=== PATIENT | female | born 1985 | race Caucasian/White ===

== ENCOUNTER 2019-09-25 18:50 | Emergency (ER) | payer OTHER ==
[~2019-09-25] VITALS: Ht 162.6 cm; Wt 53.1 kg
[2019-09-25 19:05] VITALS: BP 125/78
--- NOTE | 2019-09-25 19:05 | NUR ---
ED Nurse Note: Patient walked in, [facility] employee d/t lower back aching pain 5/10 radiates to hips. Patient reported it occurred during work today. Patient aao x 4 and ambulatory with steady gait. Patient stable upon assessment. Addendum: 09/25/19 at 1946 by IOR[facility] ED Nurse Note: Patient walked in, [facility] [place] d/t lower back aching pain 5/10 radiates to hips. Patient reported it occurred during work today. Patient aao x 4 and ambulatory. Patient stable upon assessment.
--- NOTE | 2019-09-25 19:07 | NUR ---
ED Nurse Note: ERMD at bedside.
--- NOTE | 2019-09-25 19:12 | NUR ---
ED Nurse Note: Per ERMD, urine sample not required.
[2019-09-25] MEDS ORDERED: Acetaminophen 500mg (ES) tab ORAL ONE (19:15)
[2019-09-25] MEDS ORDERED: Ketorolac 60mg Inj IM ONE (19:15)
[2019-09-25] MEDS ORDERED: LIDODERM700 M1 TOPIC (19:17)
[2019-09-25] MEDS ORDERED: TYLENOL325 MG ORAL (19:17)
[2019-09-25] MEDS ORDERED: ROBAXIN-750750 MG PO (19:17)
[2019-09-25] MEDS ORDERED: IBUPROFEN600 M1 ORAL (19:17)
--- NOTE | 2019-09-25 19:18 | Emergency Room Report ---
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, she felt sharp pain left lower back rating down her left leg, aggravated with movement alleviated with rest severity is moderate, intermittent , no perineal numbness no urinary retention no difficulty urinating, no focal weakness in the legs patient presents for evaluation Allergies: Coded Allergies: No Known Allergies (Unverified , 09/25/19) COVID-19 Screening Contact w/high risk pt: Yes Recent Travel to affected area: No Experienced COVID-19 symptoms?: No Patient History Past Medical History: see triage record Last Menstrual Period: September 01, 2019 Now: No : 0 Para: 0 Reviewed Nursing Documentation: PMH: Agreed; PSxH: Agreed Nursing Documentation-PMH Past Medical History: No Stated History Review of Systems All Other Systems: negative except mentioned in HPI Physical Exam Vital Signs Date Time Temp Pulse Resp B/P (MAP) Pulse Ox O2 Delivery O2 Flow Rate FiO2 09/25/19 19:01 98.1 71 18 130/84 (99) 99 09/25/19 19:05 Room Air General Appearance: well appearing, no apparent distress Head: normocephalic, atraumatic ENT: hearing grossly normal, normal voice Neck: full range of motion, supple Respiratory: no respiratory distress, speaking full sentences Musculoskeletal: other - Left lower backhoe operator to palpation no midline tenderness, 5 out of 5 strength hips flexion extension, knee flexion extension, ankle flexion extension, sensation grossly intact bilaterally, ambulation intact , 2+ patellar reflexes bilaterally Neurologic: alert, normal gait Psychiatric: mood/affect normal Skin: no rash Medical Decision Making Diagnostic Impression: Primary Impression: Low back pain Qualified Codes: M54.42 - Lumbago with sciatica, left side Additional Impression: Unspecified injury of lower back, sequela ER Course The patient presents with acute onset of back pain after assisting patient this AM. Clinically this patient can be ruled out for serious pathology given there is a completely normal neurological exam, no history of IV drug use, and no history of bowel or bladder incontinence, no perianal numbness/tingling, no constipation or urinary retention. Once the patient's pain was adequately controlled, the patient was able to ambulate and be discharged in stable condition with anticipatory guidance provided. Patient deferred test aware of risks and benefits to unborn fetus, patient reports she is not . Last Vital Signs Date Time Temp Pulse Resp B/P (MAP) Pulse Ox O2 Delivery O2 Flow Rate FiO2 09/25/19 19:05 98.1 75 16 125/78 97 Room Air Disposition: HOME, SELF-CARE Condition: Stable Scripts Methocarbamol* (ROBAXIN-750*) 750 Mg Tablet 750 MG PO TID PRN for spasm, #21 TAB 0 Refills Prov: Wyatt Velazquez MD 09/25/19 Acetaminophen (Tylenol) 325 Mg Tablet 650 MG ORAL Q6H PRN for Prn Pain/Headache/Temp > 101, #30 TAB 0 Refills Prov: Wyatt Velazquez MD 09/25/19 Ibuprofen* (MOTRIN*) 600 Mg Tablet 600 MG ORAL Q8H PRN for FOR PAIN, #30 TAB 0 Refills Prov: Wyatt Velazquez MD 09/25/19 Lidocaine Patch* (Lidoderm Patch*) 1 Each Adh..patch 1 PATCH TOPIC DAILY, #7 PATCH 0 Refills Patch(es) may remain in place for up to 12 hours in any 24-hour period. Prov: Wyatt Velazquez MD 09/25/19 Referrals: [facility] Dimitri Mcwilliams. [facility] Departure Forms: Return to Work Return to Work Date: Sep 28, 2019 Patient Instructions: Low Back Sprain With Rehab-SportsMed, Back Pain, Adult Additional Instructions: The patient was provided with discharge instructions, notified to follow-up with a primary care doctor and or specialist in the next 24-48 hours, and to return to the ED if they have worsening of their symptoms. Please note that this report is being documented using [employer] technology. This can lead to erroneous entry secondary to incorrect interpretation by the dictating instrument. Wyatt Velazquez MD Sep 25, 2019 19:18
[2019-09-25 19:40] VITALS: BP 130/75
--- NOTE | 2019-09-25 19:40 | NUR ---
ER DISCHARGE NOTE: Patient is cleared to be discharged per ERMD, pt is aox4, on room air, with stable vital signs. pt was given dc and prescription instructions, pt was able to verbalize understanding, pt id band removed. pt is able to ambulate with steady gait. pt took all belongings. pt stable upon discharge. Addendum: 09/25/19 at 1946 by [facility] ER DISCHARGE NOTE: Patient is cleared to be discharged per ERMD, pt is aox4, on room air, with stable vital signs. pt was given dc and prescription instructions, pt was able to verbalize understanding, pt id band removed. pt is able to ambulate. pt took all belongings. pt stable upon discharge.
--- NOTE | 2019-09-26 07:38 | NUR ---
ED Nurse Note: Toradol 1ml wasted with Cara Fields RN.
== END 2019-09-25 19:40 | disposition home or self-care (01) ==
LOC: EMR 19:20
DX: M54.42 Lumbago with sciatica, left side (principal); S39.92XS Unspecified injury of lower back, sequela; X58.XXXS Exposure to other specified factors, sequela
CPT/HCPCS: 96372; 99283

== ENCOUNTER 2019-11-26 21:35 | Emergency (ER) | payer OTHER ==
[~2019-11-26] VITALS: Ht 162.6 cm; Wt 53.5 kg
[~2019-11-26 21:35] MED LIST: IBUPROFEN600 M1 ORAL; LIDODERM700 M1 TOPIC; ROBAXIN-750750 MG PO; TYLENOL325 MG ORAL
[2019-11-26 21:52] VITALS: BP 129/90
--- NOTE | 2019-11-26 21:54 | NUR ---
ED Nurse Note: Patient walked in c/o RT shoulder pain since 2099. Per pt, she landed in RT shoulder after slipping on floor. Pt able to move arm. Pt stated 5/10 buring pain. hx of RT shoulder ligament tear. Patient AAO x4, VSS at this time.
--- NOTE | 2019-11-26 22:20 | Emergency Room Report ---
History of Present Illness General Chief Complaint: Upper Extremity Injury Source: Patient Present Illness HPI Disclaimer: Please note that this report is being documented using [employer] technology. This can lead to erroneous entry secondary to incorrect interpretation by the dictating instrument. HPI: 34-year-old female history of right glenohumeral ligamentous injury presents for evaluation of shoulder pain. 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 There was no impact, no fall, no head injury. She reports pain over the anterior shoulder but denies limitation of range of motion, swelling, numbness, tingling or weakness. States it feels similar to a prior injury which was treated nonoperatively. She does not follow regularly with orthopedic surgery. Has been applying ice but has not taken any medication prior to arrival. No other injuries reported. PMH: Glenohumeral injury PSH: Reviewed Allergies: Denied Social Hx: Denied Allergies: Coded Allergies: No Known Allergies (Unverified , 09/25/19) COVID-19 Screening Contact w/high risk pt: Yes Recent Travel to affected area: No Experienced COVID-19 symptoms?: No COVID-19 Testing performed STEAMING CABINET TENDER: No Patient History Last Menstrual Period: 11/2019 Nursing Documentation-PMH Past Medical History: No Stated History Review of Systems All Other Systems: negative except mentioned in HPI Physical Exam Vital Signs Date Time Temp Pulse Resp B/P (MAP) Pulse Ox O2 Delivery O2 Flow Rate FiO2 11/26/19 21:37 98.2 91 16 129/90 (103) 97 Room Air General: Awake and alert, no acute distress HEENT: NC/AT. EOMI. Resp: Normal work of breathing Skin: Intact. No abrasions, laceration or rash over the exposed skin MSK: Normal tone and bulk. Moving all extremities. No obvious deformity. Mild tenderness palpation over the anterior portion of the right shoulder. Full range of motion able to flex, extend, pronate and supinate at the elbow. Full range of motion of the wrist and digits. Brisk capillary refill in all digits. 2+ radial pulse. Able to abduct shoulder past 90 degrees laterally, anteriorly. Aorta posterior to the extent. Neuro: Awake and alert. Mentating appropriately Medical Decision Making Diagnostic Impression: Primary Impression: Right shoulder strain ER Course This a 34-year-old female presenting for evaluation of right shoulder pain after catching herself while falling just prior to arrival. No evidence of impingement or clinical signs of dislocation. X-ray does not show obvious fracture or dislocation. Likely a ligamentous injury. The patient was placed in a sling and will be discharged on NSAIDs with continued rest and ice. Instructed to be on light duties and nonweightbearing in the right upper extremity until cleared to return. May require further outpatient evaluation by orthopedic surgery and possible advanced imaging. Otherwise well-appearing with no other complaints in the ED. Stable for outpatient follow-up. Other X-Ray Diagnostic Results Other X-Ray Diagnostic Results : X-Ray ordered: Right shoulder # of Views/Limited Vs Complete: 3 View Indication: Pain EP Interpretation: Yes Interpretation: no dislocation, no soft tissue swelling Impression: No acute disease Electronically Signed by: Electronically signed by Dr. Salvatore Winkler Last Vital Signs Date Time Temp Pulse Resp B/P (MAP) Pulse Ox O2 Delivery O2 Flow Rate FiO2 11/26/19 21:52 98.2 16 129/90 97 Room Air 11/26/19 21:37 91 Disposition: HOME, SELF-CARE Condition: Stable Scripts Ibuprofen* (MOTRIN*) 600 Mg Tablet 600 MG ORAL Q8H PRN for FOR PAIN, #30 TAB 0 Refills Prov: Salvatore Winkler MD 11/26/19 Salvatore Winkler MD Nov 26, 2019 22:20
--- NOTE | 2019-11-26 22:39 | Diagnostic Imaging Report ---
EXAM: XR Right Shoulder Complete, 2 or More Views CLINICAL HISTORY: INJ TECHNIQUE: Two or more views of the right shoulder. COMPARISON: No relevant prior studies available. FINDINGS: Bones/joints: No acute fracture. Soft tissues: No radiodense foreign body. IMPRESSION: No acute fracture or dislocation.
[2019-11-26] MEDS ORDERED: IBUPROFEN600 M1 ORAL (22:46)
[2019-11-26 22:50] VITALS: BP 129/90
--- NOTE | 2019-11-26 22:50 | NUR ---
ED Nurse Note: Pt cleared by health care Provider for discharge. DC instructions/prescription was given and explained to pt and verbalized understanding of teachings. All medical deviecs such as ID band removed. Pt is AAO x4, ambulatory and left with all personal belongings.
--- NOTE | 2019-11-26 22:56 | NUR ---
ED Nurse Note: SLING WAS APPLYED ON RIGHT ARM
== END 2019-11-26 23:11 | disposition home or self-care (01) ==
LOC: EMR 21:55
DX: S46.911A Strain of unspecified muscle, fascia and tendon at shoulder and upper arm level, right arm, initial encounter (principal); W01.198A Fall on same level from slipping, tripping and stumbling with subsequent striking against other object, initial encounter; Y93.89 Activity, other specified; Y92.239 Unspecified place in hospital as the place of occurrence of the external cause
CPT/HCPCS: 99283